=== PATIENT | female | born 1965 ===

== ENCOUNTER → 2018-10-14 | Day surgery (SDC) | payer BC, OTHER ==
[~2018-10-14] MED LIST: LIDOCAINE 1% INJ-PF (10 MG/ML) 30 ML SDV ONE
--- NOTE | 2018-10-18 14:59 | WOMENS IMAGING REPORT ---
EXAM DESCRIPTION: U/S BREAST BX; LEFT DIG DX MAMMO NO CHG COMPLETED DATE/TIME: 10/14/2018 11:26 am; 10/14/2018 11:21 am REASON FOR STUDY: N63.20 UNSPECIFIED LUMP IN THE LEFT BREAST, UNSPECIFIED QUADRANT; N63.20 S/P US LE FT BREAST BX FOR CLIP PLACEMENT N63.20 UNSPECIFIED LUMP IN THE LEFT BREAST, UNSPECIFIED QUAD COMPARISON: None. TECHNIQUE: The procedure was discussed with the patient and the patient agreed to proceed. The patient was scanned and the area of interest in the 3 o'clock position 10 cm from the nipple of t he left breast was localized. This correlates with the area of concern on prior imaging studies. Thi s area was targeted for ultrasound-guided core biopsy. After sterile skin prep and 3 mL local lidocaine 1% for skin and deep tissue anesthesia, a 14 gauge c oaxial core biopsy needle was used to obtain several cores of tissue from the lesion. Under ultrasou nd guidance, a ribbon clip was placed in the areas sampled. There were no immediate post-procedure c omplications. MAMMOGRAM: Post-procedure two view mammogram was acquired in the digital mammogram suite. The clip wa s in the expected location. No significant hematoma. Pathology yields a diagnosis of atypical papillary lesion Pathology is concordant. LIMITATIONS: None. FINDINGS: Ultrasound guided breast biopsy as described above. POST PROCEDURE MAMMOGRAMS FOR MARKER PLACEMENT: Yes IMPRESSION: ULTRASOUND-GUIDED CORE BIOPSY OF THE RIGHT BREAST YIELDS A DIAGNOSIS OF ATYPICAL PAPILLA RY LESION. COMMENT: CORE BIOPSY YIELDED DIAGNOSIS OF ATYPICAL PAPILLARY LESION. PATIENT HAS VERY HETEROGENEOUS BREAST TISSUE BILATERALLY. PRIOR TO NEEDLE LOCALIZATION AND EXCISION OF THE BIOPSIED LESION LEFT BR EAST, CONSIDER BILATERAL BREAST MRI TO EVALUATE FOR BREAST PAPILLOMATOSIS. COMMUNICATION: RESULTS OF CORE BIOPSY LEFT BREAST NODULE AT THE 3 O'CLOCK POSITION WAS DISCUSSED WITH THE PATIENT. SHE UNDERSTANDS THAT THERE WAS ATYPIA IN THE SPECIMEN, AND THAT FURTHER THERAPY WITH N EEDLE LOCALIZATION AND EXCISION IS RECOMMENDED. POSSIBILITY OF BREAST MRI PRIOR TO NEEDLE LOCALIZATI ON/EXCISIONAL BIOPSY WAS DISCUSSED WITH THE PATIENT. Patient medication list reviewed: Yes- Quality ID# [id number]:Eligible professional attests to documenting i n the medical record they obtained, updated, or reviewed the patient's current medications. TECHNICAL DOCUMENTATION: JOB ID: [id number] [employer]- All Rights Reserved Reading location - IP/workstation name: [email or web address]
== END ==
LOC: WI 09:46
PROVIDERS: ATTEND Nurse Practitioner
DX: D24.2 Benign neoplasm of left breast (principal)
CPT/HCPCS: 88342 ×2; 88341 ×2; 88305 ×2; 19083; J3490